=== PATIENT | female | born 1965 | race African-American/Black ===

== ENCOUNTER 2017-04-21 02:07 | Emergency (ER) | payer BC ==
[~2017-04-21] VITALS: Ht 177.8 cm; Wt 124.1 kg
[~2017-04-21 02:07] MED LIST: CALCIUM 500 +1 EAC4 PO; COZAAR50 MG PO
[2017-04-21] MEDS ORDERED: PERCOCET 5/31 TABLET PO (02:49)
[2017-04-21] MEDS ORDERED: ZOFRAN4 MG PO (02:49)
[2017-04-21] MEDS ORDERED: BACTRIM,SEPT1 TABLET PO (02:49)
[2017-04-21 03:12] VITALS: BP 128/82
== END 2017-04-21 03:25 | disposition home or self-care (01) ==
LOC: EME 02:07 → EXP 02:07
PROC: 0H9FXZZ Drainage of Right Hand Skin, External Approach (ICD-10-PCS; principal; 2017-04-21)
DX: L03.011 Cellulitis of right finger (principal); S60.011A Contusion of right thumb without damage to nail, initial encounter; W22.01XA Walked into wall, initial encounter; Y93.01 Activity, walking, marching and hiking
CPT/HCPCS: 73140; 99281; 99283